=== PATIENT | male | born 1950 | race Caucasian/White ===

== ENCOUNTER 2018-06-14 06:58 | Emergency (ER) | payer MEDICARE, MEDICAID ==
[~2018-06-14 06:58] MED LIST: CEP500 PO; DIA5 PO; GAB300 PO; LOR5 PO; METH4TAB57 PO; NO ROUTINE MEDS; OXYC-866 PO; PER PO; PYRI100T57 PO
[2018-06-14 07:07] VITALS: BP 121/78
[2018-06-14] MEDS ORDERED: AMOX-362 PO (07:16)
[2018-06-14] MEDS ORDERED: PSEU120T69 PO (07:16)
--- NOTE | 2018-06-14 07:16 | ER Report ---
History and Physical Time Seen By MD: 07:08 Hx. of Stated Complaint: RIGHT EAR PAIN WITH CONGESTION IN SINUSES HPI/ROS CHIEF COMPLAINT: Right ear pain HISTORY OF PRESENT ILLNESS: She with 2-3 days of right-sided ear pain along with sinus congestion and postnasal drip and eyes any fever. Recently moved back to [place] from the [facility] about a month ago. Denies cough denies shortness of breath. REVIEW OF SYSTEMS: Respiratory: No cough, no dyspnea. Cardiovascular: No chest pain, no palpitations. Gastrointestinal: No vomiting, no abdominal pain. Musculoskeletal: Allergies: Coded Allergies: No Known Drug Allergies (Verified , 06/14/18) Home Meds Active Scripts Pseudoephedrine Hcl (SUDAFED 12 HOUR) 120 Mg Tablet.er, 120 MG PO Q12H for congestion, #20 TAB 0 Refills Prov:CHRISTIAN PHAM MD 06/14/18 Amoxicillin (AMOXICILLIN) 500 Mg Capsule, 1 CAP PO Q12H, #14 CAPSULE 0 Refills TAKE ONE CAPSULE BY MOUTH EVERY 8 HOURS Prov:CHRISTIAN PHAM MD 06/14/18 Discontinued Reported Medications Gabapentin (NEURONTIN (OR EQUIV)) 300 Mg Cap, 300 MG PO BID 03/23/12 Diazepam (VALIUM (OR EQUIV)) 5 Mg Tab, 5 MG PO Q6H PRN TAKE 1-2 TABS EVERY 6 HOURS NEEDED FOR MUSCLE SPASMS 03/23/12 Acetaminophen/Hydrocodone (Lortab 5/500) 5 Mg/500 Mg Tab, 1 TAB PO Q6H PRN, #20 03/21/12 Methylprednisolone (Medrol) 4 Mg/Dose-Pack Tab.ds.pk, 4 MG PO 03/21/12 Past Medical/Surgical History Noncontributory Hx Smoking: Yes Hx Alcohol Use: Yes Constitutional Vital Sign - Last 24 Hours 06/14/18 07:03 Temp 98.0 Pulse 71 Resp 11 B/P (MAP) 148/115 Pulse Ox 91 O2 Delivery Room Air Physical Exam General Appearance: Alert, no distress. Eyes: Pupils equal and round no pallor or injection. ENT, Mouth: Ears: Right TM is injected and dull appearance compared to the left Nose: No bleeding. Mouth: Mucous membranes are moist. Throat: No erythema or exudates there is no tonsillar hypertrophy and uvula is midline. Musculoskeletal: Neck is supple non tender, no adenopathy. Skin: Warm and dry, no rashes. Medical Decision Making ED Course/Re-evaluation ED Course 06/14/2018 7:13:49 am plan at this time will be to treat for otitis media and a cute rhinosinusitis. Decision to Disposition Date: Jun 14, 2018 Decision to Disposition Time: 07:16 Depart Departure Latest Vital Signs Vital Signs Date Time Temp Pulse Resp B/P (MAP) Pulse Ox O2 Delivery O2 Flow Rate FiO2 06/14/18 07:03 98.0 71 11 148/115 91 Room Air Impression: Primary Impression: Otitis media Additional Impression: Sinusitis Condition: Improved Disposition: HOME OR SELF-CARE Referrals: MELONY GRIFFITHS MD (PCP) Follow-up in 7-10 days if symptoms persist New Scripts Pseudoephedrine Hcl (SUDAFED 12 HOUR) 120 Mg Tablet.er 120 MG PO Q12H for congestion, #20 TAB 0 Refills Prov: CHRISTIAN PHAM MD 06/14/18 Amoxicillin (AMOXICILLIN) 500 Mg Capsule 1 CAP PO Q12H, #14 CAPSULE 0 Refills TAKE ONE CAPSULE BY MOUTH EVERY 8 HOURS Prov: CHRISTIAN PHAM MD 06/14/18 Patient Instructions: Otitis Media (ED), Sinusitis (ED) Problem Qualifiers Primary Impression: Otitis media Otitis media type: suppurative Chronicity: acute Laterality: right Recurrence: not specified as recurrent Spontaneous tympanic membrane rupture: without spontaneous rupture Qualified Codes: H66.001 - Acute suppurative otitis media without spontaneous rupture of ear drum, right ear Additional Impression: Sinusitis Sinusitis location: unspecified location Chronicity: acute Recurrence: non-recurrent Qualified Codes: J01.90 - Acute sinusitis, unspecified CHRISTIAN PHAM MD Jun 14, 2018 07:16
== END 2018-06-14 07:25 | disposition home or self-care (01) ==
LOC: ER 07:15
DX: H66.001 Acute suppurative otitis media without spontaneous rupture of ear drum, right ear (principal); J01.90 Acute sinusitis, unspecified
CPT/HCPCS: 99281

== ENCOUNTER 2018-08-10 11:00 | Emergency (ER) | payer MEDICAID, MEDICARE ==
[~2018-08-10 11:00] MED LIST changes: +AMOX-362 PO; +PSEU120T69 PO
--- NOTE | 2018-08-10 11:10 | ER Report ---
History and Physical Time Seen By MD: 11:09 Hx. of Stated Complaint: PT REPORTS R EAR PAIN HPI/ROS CHIEF COMPLAINT: ear pain HISTORY OF PRESENT ILLNESS: This is a 67 year old male. He has right ear pain. Had an ear infection seen in the beginning of June, was prescribed decongestant and antibiotics. Improved for a few weeks, then pain and not being able to hear. Now more of a problem not being able to hear, very little pain, more of a fullness. Allergies: Coded Allergies: No Known Drug Allergies (Verified , 08/10/18) Home Meds Active Scripts Neomycin/Polymyxin B Sulf/Hc (Cortisporin [DSC] EAR SOLN) 10 Ml Solution, 10 ML OT TID for 7 Days, #1 BOT 0 Refills Prov:ESSIE SETH MD 08/10/18 Amoxicillin/Pot Clav 875-125 Mg Tab (AUGMENTIN 875-125 TABLET) 1 Each Tablet, 1 TAB PO Q12H, #14 TAB 0 Refills Prov:ESSIE SETH MD 08/10/18 Discontinued Scripts Pseudoephedrine Hcl (SUDAFED 12 HOUR) 120 Mg Tablet.er, 120 MG PO Q12H for congestion, #20 TAB 0 Refills Prov:CHRISTIAN PHAM MD 06/14/18 Amoxicillin (AMOXICILLIN) 500 Mg Capsule, 1 CAP PO Q12H, #14 CAPSULE 0 Refills TAKE ONE CAPSULE BY MOUTH EVERY 8 HOURS Prov:CHRISTIAN PHAM MD 06/14/18 Reviewed Nurses Notes: Yes Hx Smoking: Yes Hx Substance Use Disorder: No (tried LSD once) Hx Alcohol Use: Yes Constitutional Vital Sign - Last 24 Hours 08/10/18 08/10/18 11:05 11:52 Temp 97.6 Pulse 65 60 Resp 18 18 B/P (MAP) 144/90 134/80 (98) Pulse Ox 90 90 O2 Delivery Room Air Room Air Physical Exam General: Alert, no distress. ENT: Right TM with cerumen impacting the canal, cannot see the TM. Canal that is seen is normal. Poor hearing. Normal oral mucosa. Left TM is normal. Medical Decision Making ED Course/Re-evaluation ED Course Cerumen removed and the canal beyond is very red and inflamed. TM is bulging and red. Prescribed cortisporin otic and augmentin. Decision to Disposition Date: Aug 10, 2018 Decision to Disposition Time: 11:40 Depart Departure Latest Vital Signs Vital Signs Date Time Temp Pulse Resp B/P (MAP) Pulse Ox O2 Delivery O2 Flow Rate FiO2 08/10/18 11:52 60 18 134/80 (98) 90 Room Air 08/10/18 11:05 97.6 Impression: Primary Impression: Otitis media Additional Impression: Otitis externa Condition: Improved Disposition: HOME OR SELF-CARE New Scripts Neomycin/Polymyxin B Sulf/Hc (Cortisporin [DSC] EAR SOLN) 10 Ml Solution 10 ML OT TID for 7 Days, #1 BOT 0 Refills Prov: ESSIE SETH MD 08/10/18 Amoxicillin/Pot Clav 875-125 Mg Tab (AUGMENTIN 875-125 TABLET) 1 Each Tablet 1 TAB PO Q12H, #14 TAB 0 Refills Prov: ESSIE SETH MD 08/10/18 Patient Instructions: Otitis Externa (ED), Otitis Media (ED) Additional Instructions: Take Augmentin 875/125 twice a day for [address] about 4 drops of cortisporin solution in the right ear three times a day. lay with your right ear upright to allow the solution to bath the ear for about 10 minutes when applying. Problem Qualifiers Primary Impression: Otitis media Otitis media type: suppurative Chronicity: acute Laterality: right Recurrence: recurrent Spontaneous tympanic membrane rupture: without spontaneous rupture Qualified Codes: H66.004 - Acute suppurative otitis media without spontaneous rupture of ear drum, recurrent, right ear Additional Impression: Otitis externa Otitis externa type: diffuse Chronicity: acute Laterality: right Qualified Codes: H60.311 - Diffuse otitis externa, right ear ESSIE SETH MD Aug 10, 2018 11:10
[2018-08-10] MEDS ORDERED: AMOX-559 PO (11:46)
[2018-08-10] MEDS ORDERED: CORED OT (11:46)
[2018-08-10 11:52] VITALS: BP 134/80
== END 2018-08-10 11:53 | disposition home or self-care (01) ==
LOC: ER 11:16
DX: H66.004 Acute suppurative otitis media without spontaneous rupture of ear drum, recurrent, right ear (principal); H60.311 Diffuse otitis externa, right ear
CPT/HCPCS: 99282

== ENCOUNTER 2018-11-06 09:53 | Emergency (ER) | payer MEDICARE ==
[~2018-11-06 09:53] MED LIST changes: +AMOX-559 PO; +CORED OT
--- NOTE | 2018-11-06 10:32 | ER Report ---
History and Physical Time Seen By MD: 10:32 Hx. of Stated Complaint: PT NEEDS COLOSTOMY SUPPLIED REFILLED HPI/ROS CHIEF COMPLAINT: needs colostomy supplies. HISTORY OF PRESENT ILLNESS: This is a 68 year old male. Needs colostomy supplies. Bag he has has been in place for weeks, starting to leak, has no PCP but in process of trying to get one. Allergies: Coded Allergies: No Known Drug Allergies (Verified , 11/06/18) Home Meds Discontinued Scripts Neomycin/Polymyxin B Sulf/Hc (Cortisporin [DSC] EAR SOLN) 10 Ml Solution, 10 ML OT TID for 7 Days, #1 BOT 0 Refills Prov:ESSIE SETH MD 08/10/18 Amoxicillin/Pot Clav 875-125 Mg Tab (AUGMENTIN 875-125 TABLET) 1 Each Tablet, 1 TAB PO Q12H, #14 TAB 0 Refills Prov:ESSIE SETH MD 08/10/18 Hx Smoking: Yes Hx Substance Use Disorder: No (tried LSD once) Hx Alcohol Use: Yes Constitutional Vital Sign - Last 24 Hours 11/06/18 09:58 Temp 97.6 Pulse 62 Resp 16 Pulse Ox 95 O2 Delivery Room Air Physical Exam Abdomen: wafer attached with duct tape, mild leaking. Otherwise negative. Medical Decision Making ED Course/Re-evaluation ED Course arranged to get the wafer and bag replaced, added prescription and assisted with getting him set up with PCP. Decision to Disposition Date: Nov 06, 2018 Decision to Disposition Time: 11:02 Depart Departure Latest Vital Signs Vital Signs Date Time Temp Pulse Resp B/P (MAP) Pulse Ox O2 Delivery O2 Flow Rate FiO2 11/06/18 09:58 97.6 62 16 95 Room Air Impression: Primary Impression: Colostomy care Condition: Improved Disposition: HOME OR SELF-CARE New Scripts No Active Prescriptions or Reported Meds Patient Instructions: Colostomy Care (ED) Additional Instructions: Colostomy supplies and prescription provided for short term. Please establish with primary care for further prescriptions. ESSIE SETH MD Nov 06, 2018 10:32
== END 2018-11-06 11:15 | disposition home or self-care (01) ==
LOC: ER 10:39
DX: Z43.3 Encounter for attention to colostomy (principal)
CPT/HCPCS: 99281